=== PATIENT | male | born 1995 | race Caucasian/White ===

== ENCOUNTER → 2018-07-19 09:28 | Outpatient (CLI) | payer SELFPAY ==
--- NOTE | 2018-07-19 09:47 | DI.RAD.S_ITS ---
PROCEDURE: XR ANKLE LT MIN 3V INDICATIONS: 7-8 weeks of left ankle pain TECHNIQUE: 3 views of the ankle were acquired. COMPARISON: None. FINDINGS: Bones: No fractures or dislocations. Ankle mortise is normally aligned. No suspicious bony lesions. Soft tissues: No tibiotalar joint effusion. Achilles tendon appears normal. IMPRESSION: Unremarkable radiographic examination of left ankle. Dictated by: Cesar Shore M.D. on 07/19/2018 at 10:11 Approved by: Cesar Shore M.D. on 07/19/2018 at 10:17
== END ==
PROVIDERS: Visit Provider Physician Assistant
DX: M25.572 Pain in left ankle and joints of left foot (principal)
CPT/HCPCS: 73610